=== PATIENT | female | born 1995 | race Caucasian/White ===

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

== ENCOUNTER 2017-02-12 10:45 | Emergency (ER) | payer OTHER ==
[~2017-02-12] VITALS: Ht 157.4 cm; Wt 131.5 kg
[~2017-02-12 10:45] MED LIST changes: +PEPCID20 MG PO
[2017-02-12] MEDS ORDERED: AUGMENTIN 875875 MG PO (11:44)
== END 2017-02-12 11:46 | disposition home or self-care (01) ==
LOC: ED 10:45
DX: K08.89 Other specified disorders of teeth and supporting structures (principal)

== ENCOUNTER 2017-08-26 14:57 | Emergency (ER) | payer OTHER ==
[~2017-08-26] VITALS: Ht 157.4 cm; Wt 131.5 kg
[~2017-08-26 14:57] MED LIST changes: +AUGMENTIN 875875 MG PO
[2017-08-26] MEDS ORDERED: Motrin,Rufen800 MG PO (15:44)
== END 2017-08-26 16:34 | disposition home or self-care (01) ==
LOC: ED 14:57
DX: S50.11XA Contusion of right forearm, initial encounter (principal); W22.8XXA Striking against or struck by other objects, initial encounter; Y93.89 Activity, other specified; Y92.89 Other specified places as the place of occurrence of the external cause; Y99.8 Other external cause status

== ENCOUNTER 2017-09-11 01:13 | Emergency (ER) | payer OTHER ==
[~2017-09-11] VITALS: Ht 160 cm; Wt 113.4 kg
== END 2017-09-11 01:34 | disposition home or self-care (01) ==
LOC: ED 01:13
DX: K08.89 Other specified disorders of teeth and supporting structures (principal)

== ENCOUNTER 2017-11-23 11:57 | Emergency (ER) | payer OTHER ==
[~2017-11-23] VITALS: Ht 167.6 cm; Wt 117.9 kg
[2017-11-23] MEDS ORDERED: NAPROSYN500 MG PO (14:43)
[2017-11-23] MEDS ORDERED: CYCLOBENZAPRINE10 MG PO (14:43)
[2017-11-23] MEDS ORDERED: MEDROL DOSEPAK4 MG PO (14:43)
== END 2017-11-23 14:46 | disposition home or self-care (01) ==
LOC: ED 11:57
DX: S39.012A Strain of muscle, fascia and tendon of lower back, initial encounter (principal); X58.XXXA Exposure to other specified factors, initial encounter; Y93.89 Activity, other specified; Y92.89 Other specified places as the place of occurrence of the external cause; Y99.8 Other external cause status

== ENCOUNTER → 2018-03-23 | Day surgery (SDC) | payer OTHER ==
[~2018-03-23] VITALS: Ht 154.9 cm; Wt 131.5 kg
[~2018-03-23] MED LIST changes: +ADDERALL 10 MG10 MG PO; +CYCLOBENZAPRINE10 MG PO; +LAMICTAL25 MG PO; +LEXAPRO20 MG PO; +MEDROL DOSEPAK4 MG PO; +METFORMIN HYDR850 MG PO; +METFORMIN XR500 MG PO; +NAPROSYN500 MG PO
--- NOTE | ~2018-03-23 | O ---
[place], [place] OPERATIVE NOTE NAME: KIM PONCE UNIT #: [id number] ROOM: DOCTOR[facility] [place] [facility] [birth year] DOS: 03/23/2018 GASTROENDOSCOPIC REPORT INDICATIONS: The patient is a 23-year-old who has presented with nausea, epigastric distress, dyspepsia as well as diarrhea, undergoing investigation. PAST MEDICAL HISTORY: Known history of morbid obesity, depression, polycystic ovaries. PAST SURGICAL HISTORY: Cholecystectomy. SOCIAL HISTORY: Nonsmoker, nonalcohol consumer. PROCEDURE: Today's procedure part of investigation is panendoscopy and colonoscopy. PREMEDICATION: Propofol. SCOPE: Olympus forward-viewing gastroscope Q10 video. REPORT: After putting the patient in left lateral position and application of lubricant to the scope, the scope was introduced, thereafter under direct visualization advanced through the length of esophagus without difficulty. Esophagus, cervical, thoracic distally carefully examined. No ulceration, no lesion was seen. Gastritis noticed upon the entry of the stomach. Antral biopsy obtained for H. pylori. Duodenal bulb, second and third part within normal limits. The patient was extubated, tolerated the procedure well. IMPRESSION: Mild gastritis, status post biopsy for Helicobacter pylori. PLAN AND DISCUSSION: We are going to keep the patient on famotidine 20 mg one at bedtime. On the other hand, we are going to proceed with colonoscopic evaluation for diarrhea. INDICATIONS: The patient is a 23-year-old patient who has presented with a chief complaint of diarrhea, undergoing investigation. PROCEDURE #2: Today's procedure part of investigation is colonoscopy plus biopsy, terminal ileoscopy plus biopsy. PREMEDICATION: Propofol. SCOPE: Olympus forward-viewing colonoscope 10L video. REPORT: After putting the patient in left lateral position and application of lubricant to the scope, the scope was introduced, thereafter under direct visualization advanced through the length of colon without difficulty. Random biopsies of the colon were obtained since the colon was normal in character in ascending, transverse and descending colon just to rule out collagenous colitis [place], [place] OPERATIVE NOTE NAME: KIM PONCE UNIT #: [id number] ROOM: DOCTOR: STEV[facility]US [facility] [place] [facility]TH[facility]: [birth year] and microscopic colitis. On the other hand, terminal ileum was scoped, very nodular terminal ileum was noticed. Biopsy was obtained to make sure there is no subcutaneous pathology. Scope was withdrawn. The patient was extubated, tolerated the procedure well. IMPRESSION: Normal terminal ileoscopy except one nodularity status post biopsy, normal colonoscopic examination, status post random biopsy ruling out collagenous and microscopic colitis. PLAN AND DISCUSSION: I believe this patient's problem of diarrhea is secondary to her metformin. I am going to change her from metformin hydrochloride 850 mg daily to metformin 750 mg extended-release metformin, to be evaluated to see if her diarrhea is going to clinically respond to this exchange. High-fiber diet. Avoiding excessive dairy products. Cutting all the fatty food. Her BMI is 56, approximately 3 times of her normal expected BMI which is 21. We will discuss with family regarding this management. Thank you very much indeed. RAVINDER LEMUS MD CM:OPRELIASORD:OPERATIVE NOTE [id number] KAUSHAL RIOS MD 03/23/18 1300 interface
[2018-03-23 11:07] VITALS: BP 124/71
[2018-03-23 12:30] VITALS: BP 119/58
[2018-03-23 12:45] VITALS: BP 109/61
[2018-03-23 12:54] VITALS: BP 112/73
== END | disposition home or self-care (01) ==
LOC: SDC 03-20 09:30
DX: K29.50 Unspecified chronic gastritis without bleeding (principal); K63.89 Other specified diseases of intestine; E11.9 Type 2 diabetes mellitus without complications; K21.9 Gastro-esophageal reflux disease without esophagitis; F32.9 Major depressive disorder, single episode, unspecified; E66.01 Morbid (severe) obesity due to excess calories; Z90.49 Acquired absence of other specified parts of digestive tract; Z98.890 Other specified postprocedural states; Z68.43 Body mass index [BMI] 50.0-59.9, adult; Z79.899 Other long term (current) drug therapy

== ENCOUNTER 2018-06-06 22:29 | Emergency (ER) | payer OTHER ==
[~2018-06-06] VITALS: Ht 157.4 cm; Wt 131.5 kg
[2018-06-06] MEDS ORDERED: HYDROXYZINE PAM25 M1 PO (22:36)
== END 2018-06-06 23:34 | disposition home or self-care (01) ==
LOC: ED 22:29
DX: G89.29 Other chronic pain (principal); M79.672 Pain in left foot; M25.572 Pain in left ankle and joints of left foot; Z79.899 Other long term (current) drug therapy; Z90.49 Acquired absence of other specified parts of digestive tract

== ENCOUNTER 2019-06-09 20:57 | Emergency (ER) | payer OTHER ==
[~2019-06-09 20:57] MED LIST changes: +CYCLOBENZAPRINE5 M3 PO
== END 2019-06-09 23:55 | disposition home or self-care (01) ==
LOC: ED 20:57
DX: B34.9 Viral infection, unspecified (principal); H92.03 Otalgia, bilateral; K21.9 Gastro-esophageal reflux disease without esophagitis; Z79.899 Other long term (current) drug therapy

== ENCOUNTER 2019-12-10 11:22 | Emergency (ER) | payer OTHER ==
[~2019-12-10] VITALS: Ht 157.4 cm; Wt 136.1 kg
[2019-12-10] MEDS ORDERED: LEVOFLOXACIN500 MG PO (12:11)
[2019-12-10] MEDS ORDERED: ANTIBIOTIC28.4 GM T (12:11)
== END 2019-12-10 13:40 | disposition home or self-care (01) ==
LOC: ED 11:22
DX: S91.332A Puncture wound without foreign body, left foot, initial encounter (principal); K21.9 Gastro-esophageal reflux disease without esophagitis; Z79.899 Other long term (current) drug therapy; W45.0XXA Nail entering through skin, initial encounter; Y93.01 Activity, walking, marching and hiking; Y92.89 Other specified places as the place of occurrence of the external cause; Y99.8 Other external cause status

== ENCOUNTER 2019-12-28 10:50 | Emergency (ER) | payer OTHER ==
[~2019-12-28] VITALS: Ht 154.9 cm; Wt 136.1 kg
[~2019-12-28 10:50] MED LIST changes: +ANTIBIOTIC28.4 GM T; +LEVOFLOXACIN500 MG PO
[2019-12-28] MEDS ORDERED: ZYRTEC10 M3 PO (12:07)
[2019-12-28] MEDS ORDERED: FLONASE ALLERG9.9 ML NAS (12:07)
== END 2019-12-28 12:11 | disposition home or self-care (01) ==
LOC: ED 10:50
DX: B34.9 Viral infection, unspecified (principal); K21.9 Gastro-esophageal reflux disease without esophagitis; Z79.899 Other long term (current) drug therapy; Z20.828 Contact with and (suspected) exposure to other viral communicable diseases

== ENCOUNTER 2020-01-26 00:53 | Emergency (ER) | payer OTHER ==
[~2020-01-26] VITALS: Ht 157.4 cm; Wt 156.9 kg
[~2020-01-26 00:53] MED LIST changes: +FLONASE ALLERG9.9 ML NAS; +ZYRTEC10 M3 PO
[2020-01-26 01:42] LABS: BASO % 0.2 % (0.0-1.0); EOS # 0.1 10*3/uL (0.0-0.4); EOS % 1.5 % (1.0-4.0); HEMATOCRIT 40.2 % (37.0-47.0); LYMPH # 3.2 10*3/uL (1.3-4.4); LYMPH % 39.7 % (27.0-41.0); MEAN CELL VOLUME 80.7 fl (81.0-99.0); MEAN CORPUSCULAR HGB 26.3 pg (27.0-31.0); MEAN CORPUSCULAR HGB CONC 32.6 g/dl (33.0-37.0); MEAN PLATELET VOLUME 9.8 fl (9.6-12.3); MONO # 0.6 10*3/uL (0.1-1.0); MONO % 7.7 % (3.0-9.0); NEUT # 4.1 10*3/uL (2.3-7.9); NEUT % 50.7 % (47.0-73.0); PLATELET COUNT AUTOMATED 237 10*3/uL (130-400); RED BLOOD COUNT 4.98 10*6/uL (4.10-5.10); RED CELL DISTRI WIDTH 14.1 % (0-14.5)
[2020-01-26 02:00] LABS: ALBUMIN 3.2 gm/dl (3.1-4.5); ALKALINE PHOSPHATASE 73 U/L (45-117); BUN 15 mg/dl (7-24); CHLORIDE 108 mmol/L (98-107); CREATININE 0.92 mg/dL (0.55-1.02); POTASSIUM 3.9 mmol/L (3.5-5.1); SGOT/AST 27 IU/L (3-35); SGPT/ALT 50 U/L (12-78); SODIUM 140 mmol/L (136-145); TOTAL PROTEIN 7.4 gm/dL (6.4-8.2)
[2020-01-26] MEDS ORDERED: ZOFRAN4 MG PO ×2 (04:11→04:23)
[2020-01-26] MEDS ORDERED: Fioricet 325 MG1 TAB PO (04:23)
== END 2020-01-26 04:23 | disposition home or self-care (01) ==
LOC: ED 00:53
PROVIDERS: Emergency Medicine Emergency Medical Services
DX: G43.909 Migraine, unspecified, not intractable, without status migrainosus (principal); Z79.899 Other long term (current) drug therapy

== ENCOUNTER → 2020-02-06 | Outpatient (CLI) | payer OTHER ==
[~2020-02-06] MED LIST changes: +Fioricet 325 MG1 TAB PO; +ZOFRAN4 MG PO
== END | disposition home or self-care (01) ==
LOC: COVID19 08:25
PROVIDERS: ATTEND Family Medicine
DX: Z20.828 Contact with and (suspected) exposure to other viral communicable diseases (principal)

== ENCOUNTER 2020-04-15 15:43 | Emergency (ER) | payer OTHER ==
[~2020-04-15] VITALS: Ht 157.4 cm; Wt 140.6 kg
[2020-04-15] MEDS ORDERED: IBUPROFEN600 MG PO (17:31)
[2020-04-15] MEDS ORDERED: AMOXICILLIN500 M2 PO (17:31)
== END 2020-04-15 19:11 | disposition home or self-care (01) ==
LOC: ED 15:43
DX: K02.7 Dental root caries (principal); Z79.899 Other long term (current) drug therapy

== ENCOUNTER → 2020-07-27 | Outpatient (CLI) | payer OTHER ==
[~2020-07-27] MED LIST changes: +AMOXICILLIN500 M2 PO; +IBUPROFEN600 MG PO
== END | disposition home or self-care (01) ==
LOC: COVID19 15:51
PROVIDERS: ATTEND Nurse Practitioner Adult Health
DX: Z20.822 Contact with and (suspected) exposure to COVID-19 (principal)

== ENCOUNTER 2020-10-13 19:29 | Emergency (ER) | payer OTHER ==
[~2020-10-13] VITALS: Ht 154.9 cm; Wt 136.1 kg
[2020-10-13] MEDS ORDERED: CEPHALEXIN500 M1 PO (22:10)
[2020-10-13] MEDS ORDERED: PREDNISONE20 M1 PO (22:10)
== END 2020-10-13 23:59 | disposition home or self-care (01) ==
LOC: ED 19:29
DX: L23.7 Allergic contact dermatitis due to plants, except food (principal); Z79.2 Long term (current) use of antibiotics; Z79.899 Other long term (current) drug therapy

== ENCOUNTER → 2021-02-08 | Outpatient (CLI) | payer OTHER ==
[~2021-02-08] MED LIST changes: +CEPHALEXIN500 M1 PO; +PREDNISONE20 M1 PO
[2021-02-08 11:02] LABS: BASO % 0.3 % (0.0-1.0); EOS # 0.1 10*3/uL (0.0-0.4); EOS % 0.8 % (1.0-4.0); HEMATOCRIT 36.4 % (37.0-47.0); LYMPH # 2.6 10*3/uL (1.3-4.4); LYMPH % 24.8 % (27.0-41.0); MEAN CELL VOLUME 81.6 fl (81.0-99.0); MEAN CORPUSCULAR HGB 27.4 pg (27.0-31.0); MEAN CORPUSCULAR HGB CONC 33.5 g/dl (33.0-37.0); MEAN PLATELET VOLUME 9.4 fl (9.6-12.3); MONO # 0.6 10*3/uL (0.1-1.0); MONO % 6.2 % (3.0-9.0); NEUT % 67.6 % (47.0-73.0); PLATELET COUNT AUTOMATED 286 10*3/uL (130-400); RED BLOOD COUNT 4.46 10*6/uL (4.10-5.10); RED CELL DISTRI WIDTH 13.3 % (0-14.5); WHITE BLOOD COUNT 10.3 10*3/uL (4.8-10.8)
[2021-02-08 11:32] LABS: B-hCG (QUALITATIVE) NEGATIVE (NEGATIVE); CHOLESTEROL 182 mg/dL (<200); LDL CHOLESTEROL 90 mg/dL (9-159); TRIGLYCERIDES 242 mg/dl (<150)
[2021-02-09 04:06] LABS: FOLLICLE STIMULATING HORMONE 2.6 mIU/mL (.); LUTEINIZING HORMONE 4.5 mIU/mL (.); PROLACTIN 11.6 ng/mL (4.8-23.3)
[2021-02-12 03:06] LABS: TESTOSTERONE FREE, (DIRECT) 0.7 pg/mL (0.0-4.2)
== END | disposition home or self-care (01) ==
LOC: LAB 10:43
PROVIDERS: ATTEND Obstetrics & Gynecology
DX: E28.2 Polycystic ovarian syndrome (principal); E66.01 Morbid (severe) obesity due to excess calories

== ENCOUNTER 2021-02-10 22:24 | Emergency (ER) | payer OTHER ==
[~2021-02-10] VITALS: Ht 154.9 cm; Wt 158.8 kg
[2021-02-10 23:15] LABS: BASO % 0.2 % (0.0-1.0); EOS # 0.1 10*3/uL (0.0-0.4); EOS % 0.6 % (1.0-4.0); HEMATOCRIT 34.7 % (37.0-47.0); LYMPH % 22.6 % (27.0-41.0); MEAN CELL VOLUME 83.4 fl (81.0-99.0); MEAN CORPUSCULAR HGB 27.2 pg (27.0-31.0); MEAN CORPUSCULAR HGB CONC 32.6 g/dl (33.0-37.0); MEAN PLATELET VOLUME 9.5 fl (9.6-12.3); MONO # 0.7 10*3/uL (0.1-1.0); MONO % 5.5 % (3.0-9.0); NEUT # 9.4 10*3/uL (2.3-7.9); NEUT % 70.7 % (47.0-73.0); PLATELET COUNT AUTOMATED 284 10*3/uL (130-400); RED BLOOD COUNT 4.16 10*6/uL (4.10-5.10); RED CELL DISTRI WIDTH 13.5 % (0-14.5); WHITE BLOOD COUNT 13.2 10*3/uL (4.8-10.8)
[2021-02-10 23:29] LABS: ACT PARTIAL THROMBO TIME 26.6 SECONDS (20.0-32.1); INTERNATIONAL NORM RATIO 1.1 (2.0-3.5)
[2021-02-10 23:33] LABS: ALBUMIN 2.8 gm/dl (3.1-4.5); ALKALINE PHOSPHATASE 65 U/L (45-117); BUN 10 mg/dl (7-24); CHLORIDE 105 mmol/L (98-107); CREATININE 0.72 mg/dL (0.55-1.02); POTASSIUM 4.1 mmol/L (3.5-5.1); SGOT/AST 24 IU/L (3-35); SGPT/ALT 54 U/L (12-78); SODIUM 138 mmol/L (136-145); TOTAL PROTEIN 7.5 gm/dL (6.4-8.2)
== END 2021-02-11 00:54 | disposition home or self-care (01) ==
LOC: ED 22:24
PROVIDERS: Internal Medicine
DX: N93.9 Abnormal uterine and vaginal bleeding, unspecified (principal)

== ENCOUNTER 2021-03-18 02:23 | Emergency (ER) | payer OTHER ==
[~2021-03-18] VITALS: Ht 154.9 cm; Wt 95.3 kg
[2021-03-18 02:59] LABS: BASO % 0.2 % (0.0-1.0); EOS # 0.1 10*3/uL (0.0-0.4); EOS % 0.4 % (1.0-4.0); HEMATOCRIT 39.5 % (37.0-47.0); LYMPH # 3.4 10*3/uL (1.3-4.4); LYMPH % 20.9 % (27.0-41.0); MEAN CELL VOLUME 85.3 fl (81.0-99.0); MEAN CORPUSCULAR HGB 26.8 pg (27.0-31.0); MEAN CORPUSCULAR HGB CONC 31.4 g/dl (33.0-37.0); MEAN PLATELET VOLUME 9.6 fl (9.6-12.3); MONO # 0.9 10*3/uL (0.1-1.0); MONO % 5.6 % (3.0-9.0); NEUT # 11.9 10*3/uL (2.3-7.9); NEUT % 72.5 % (47.0-73.0); PLATELET COUNT AUTOMATED 256 10*3/uL (130-400); RED BLOOD COUNT 4.63 10*6/uL (4.10-5.10); RED CELL DISTRI WIDTH 14.1 % (0-14.5); WHITE BLOOD COUNT 16.4 10*3/uL (4.8-10.8)
[2021-03-18 03:14] LABS: ALBUMIN 2.7 gm/dl (3.1-4.5); ALKALINE PHOSPHATASE 62 U/L (45-117); BUN 11 mg/dl (7-24); CHLORIDE 110 mmol/L (98-107); CREATININE 0.68 mg/dL (0.55-1.02); POTASSIUM 3.8 mmol/L (3.5-5.1); SGOT/AST 7 IU/L (3-35); SGPT/ALT 26 U/L (12-78); SODIUM 140 mmol/L (136-145); TOTAL PROTEIN 7.3 gm/dL (6.4-8.2)
== END 2021-03-18 03:37 | disposition home or self-care (01) ==
LOC: ED 02:23
PROVIDERS: Internal Medicine
DX: B34.9 Viral infection, unspecified (principal); Z20.822 Contact with and (suspected) exposure to COVID-19; Z79.899 Other long term (current) drug therapy

== ENCOUNTER 2021-08-12 23:08 | Emergency (ER) | payer OTHER | END 2021-08-13 00:30 | disposition home or self-care (01) | LOC: ED 23:08 | DX: S66.911A Strain of unspecified muscle, fascia and tendon at wrist and hand level, right hand, initial encounter (principal); Z79.899 Other long term (current) drug therapy; W18.39XA Other fall on same level, initial encounter; Y93.89 Activity, other specified; Y92.89 Other specified places as the place of occurrence of the external cause; Y99.8 Other external cause status ==

== ENCOUNTER 2022-02-08 20:03 | Emergency (ER) | payer OTHER ==
[~2022-02-08] VITALS: Ht 165.1 cm; Wt 95.3 kg
== END 2022-02-08 21:26 | disposition home or self-care (01) ==
LOC: ED 20:03
DX: M79.671 Pain in right foot (principal); Z79.899 Other long term (current) drug therapy; Z90.49 Acquired absence of other specified parts of digestive tract

== ENCOUNTER 2022-02-09 18:57 | Emergency (ER) | payer OTHER ==
[~2022-02-09] VITALS: Ht 154.9 cm; Wt 136.1 kg
== END 2022-02-09 20:43 | disposition home or self-care (01) ==
LOC: ED 18:57
DX: U07.1 COVID-19 (principal); M79.602 Pain in left arm; Z79.899 Other long term (current) drug therapy

== ENCOUNTER 2023-03-06 17:38 | Emergency (ER) | payer OTHER ==
[~2023-03-06] VITALS: Ht 154.9 cm; Wt 136.1 kg
[2023-03-06] MEDS ORDERED: MELOXICAM7.5 MG PO (18:10)
== END 2023-03-06 18:38 | disposition home or self-care (01) ==
LOC: ED 17:38
DX: K08.89 Other specified disorders of teeth and supporting structures (principal); K21.9 Gastro-esophageal reflux disease without esophagitis; F90.9 Attention-deficit hyperactivity disorder, unspecified type; Z98.890 Other specified postprocedural states

== ENCOUNTER 2023-05-16 18:26 | Emergency (ER) | payer OTHER ==
[~2023-05-16] VITALS: Ht 154.9 cm; Wt 136.1 kg
[~2023-05-16 18:26] MED LIST changes: +MELOXICAM7.5 MG PO
[2023-05-16 20:20] LABS: BASO % 0.3 % (0.0-1.0); EOS % 0.2 % (1.0-4.0); HEMATOCRIT 41.2 % (37.0-47.0); LYMPH # 1.9 10*3/uL (1.3-4.4); LYMPH % 17.3 % (27.0-41.0); MEAN CELL VOLUME 84.1 fl (81.0-99.0); MEAN CORPUSCULAR HGB 27.3 pg (27.0-31.0); MEAN CORPUSCULAR HGB CONC 32.5 g/dl (33.0-37.0); MEAN PLATELET VOLUME 10.2 fl (9.6-12.3); MONO # 0.4 10*3/uL (0.1-1.0); NEUT # 8.4 10*3/uL (2.3-7.9); NEUT % 77.9 % (47.0-73.0); PLATELET COUNT AUTOMATED 259 10*3/uL (130-400); RED CELL DISTRI WIDTH 13.2 % (0-14.5); WHITE BLOOD COUNT 10.8 10*3/uL (4.8-10.8)
[2023-05-16 20:36] LABS: ALKALINE PHOSPHATASE 65 U/L (46-116); BUN 14 mg/dl (9-23); CHLORIDE 105 mmol/L (98-107); CPK 59 U/L (34-171); POTASSIUM 3.7 mmol/L (3.4-5.1); SGPT/ALT 18 U/L (5-49); TOTAL PROTEIN 7.1 gm/dL (6.0-8.0)
[2023-05-16 21:16] LABS: B-hCG (QUALITATIVE) NEGATIVE (NEGATIVE)
== END 2023-05-16 22:37 | disposition home or self-care (01) ==
LOC: ED 18:26
PROVIDERS: Family Medicine
DX: F41.0 Panic disorder [episodic paroxysmal anxiety] (principal); R53.83 Other fatigue; K21.9 Gastro-esophageal reflux disease without esophagitis; F90.9 Attention-deficit hyperactivity disorder, unspecified type; Z98.890 Other specified postprocedural states; F17.210 Nicotine dependence, cigarettes, uncomplicated

== ENCOUNTER 2023-06-03 22:46 | Emergency (ER) | payer OTHER | END 2023-06-03 23:00 | disposition left against medical advice (07) | LOC: ED 22:46 | DX: M54.2 Cervicalgia (principal); M25.519 Pain in unspecified shoulder; M54.9 Dorsalgia, unspecified; Z53.21 Procedure and treatment not carried out due to patient leaving prior to being seen by health care provider ==

== ENCOUNTER → 2023-08-15 | Outpatient (CLI) | payer OTHER | END | disposition home or self-care (01) | LOC: LAB 16:01 | PROVIDERS: ATTEND Internal Medicine Critical Care Medicine | DX: R53.83 Other fatigue (principal) ==

== ENCOUNTER 2024-02-21 06:29 | Emergency (ER) | payer SELFPAY ==
[2024-02-21] MEDS ORDERED: Lactated Ringer's Solution 1,000 ML IV SCH (07:25)
[2024-02-21 07:44] LABS: BASO % 0.2 % (0.0-1.0); EOS # 0.1 10*3/uL (0.0-0.4); EOS % 0.9 % (1.0-4.0); HEMATOCRIT 40.1 % (37.0-47.0); LYMPH # 3.4 10*3/uL (1.3-4.4); LYMPH % 25.9 % (27.0-41.0); MEAN CELL VOLUME 85.1 fl (81.0-99.0); MEAN CORPUSCULAR HGB 27.4 pg (27.0-31.0); MEAN CORPUSCULAR HGB CONC 32.2 g/dl (33.0-37.0); MEAN PLATELET VOLUME 9.7 fl (9.6-12.3); MONO # 0.7 10*3/uL (0.1-1.0); NEUT % 67.7 % (47.0-73.0); PLATELET COUNT AUTOMATED 301 10*3/uL (130-400); RED BLOOD COUNT 4.71 10*6/uL (4.10-5.10); RED CELL DISTRI WIDTH 13.5 % (0-14.5); WHITE BLOOD COUNT 13.2 10*3/uL (4.8-10.8)
[2024-02-21 08:00] LABS: ALKALINE PHOSPHATASE 65 U/L (46-116); BUN 16 mg/dl (9-23); CHLORIDE 105 mmol/L (98-107); POTASSIUM 3.8 mmol/L (3.4-5.1); SGPT/ALT 18 U/L (5-49); TOTAL PROTEIN 7.1 gm/dL (6.0-8.0)
[2024-02-21 08:03] LABS: B-hCG (QUALITATIVE) NEGATIVE (NEGATIVE)
== END 2024-02-21 08:35 | disposition home or self-care (01) ==
LOC: ED 06:29
PROVIDERS: Emergency Medicine
DX: R55 Syncope and collapse (principal); R42 Dizziness and giddiness; G43.909 Migraine, unspecified, not intractable, without status migrainosus; Z79.899 Other long term (current) drug therapy

== ENCOUNTER 2025-03-29 19:20 | Emergency (ER) | payer SELFPAY ==
[~2025-03-29] VITALS: Ht 157.4 cm; Wt 140.6 kg
[2025-03-29] MEDS ORDERED: IBUPROFEN 800 MG TAB PO ONE (21:15)
[2025-03-29] MEDS ORDERED: Dexamethasone Sodium Phospha 10 MG/1 ML VIAL PO ONE (21:15)
[2025-03-29] MEDS ORDERED: Amoxicillin/Clavulanate Pota 875 MG TAB PO ONE (22:00)
[2025-03-29] MEDS ORDERED: AMOX-CLAV 875-1 EACH PO (22:02)
== END 2025-03-29 23:48 | disposition home or self-care (01) ==
LOC: ED 19:20
DX: J02.0 Streptococcal pharyngitis (principal); F41.9 Anxiety disorder, unspecified; I10 Essential (primary) hypertension; E66.01 Morbid (severe) obesity due to excess calories; Z68.30 Body mass index [BMI] 30.0-30.9, adult; Z79.899 Other long term (current) drug therapy; Z20.822 Contact with and (suspected) exposure to COVID-19